=== PATIENT | male | born 1990 | race Caucasian/White ===

== ENCOUNTER 2017-10-15 20:06 | Emergency (ER) | payer SELFPAY ==
[2017-10-15] MEDS ORDERED: predniSONE 20 MG TAB ONE (20:44)
[2017-10-15 21:08] LABS: #Basophils 0.1 thou/uL (0.0-0.2); #Eosinphils 0.9 thou/uL (0.0-0.7); #Lymphocytes 2.5 thou/uL (1.20-3.40); #Monocytes 0.6 thou/uL (0.11-0.59); #Neutrophils 4.1 thou/uL (1.40-6.50); %Eosinophils 10.6 % (0.0-10.0); %Lymphocytes 30.8 % (21.0-51.0); %Monocytes 7.5 % (0.0-10.0); %Neutrophils 50.1 % (42.0-75.0); Hemoglobin 15.4 g/dL (14.0-18.0); Mean Corpuscular HGB CONC 33.9 g/dL (32.0-36.0); Mean Corpuscular Hemoglobin 29.8 pg (27.0-31.0); Mean Corpuscular Volume 87.8 fl (80.0-94.0); Mean Platelet Volume 6.3 fL (7.4-10.4); Platelet Count 338 thou/uL (130-400); RBC Distribution Width 11.5 % (11.5-14.5); Red Blood Cell (RBC) Count 5.17 mill/uL (4.70-6.10); White Blood Cell (WBC) Count 8.2 thou/uL (4.8-10.8)
[2017-10-15 21:29] LABS: ALT (SGPT) 15 U/L (8-55); AST (SGOT) 20 U/L (5-34); Acetaminophen Less than 6.0 mcg/mL (10.0-30.0); Albumin 4.2 g/dL (3.5-5.0); Alcohol Less than 10 mg/dL (Less than 10); Alkaline Phosphatase 89 U/L (40-150); Anion Gap 9 mmol/L (10-20); BUN (Urea Nitrogen) 22 mg/dL (8.9-20.6); Bilirubin, Total 0.5 mg/dL (0.2-1.2); Calc. Creatinine Clearance 0 mL/min (70-130); Carbon Dioxide 30 mmol/L (22-29); Chloride 104 mmol/L (98-107); Estimated GFR-MDRD 84; Globulin 3.1 g/dL (2.4-3.5); Glucose 95 mg/dL (70-105); Potassium 4.1 mmol/L (3.5-5.1); Protein, Total 7.3 g/dL (6.0-8.3); Salicylate Less than 8.0 mg/dL (15.0-30.0); Sodium 139 mmol/L (136-145)
[2017-10-15 21:30] LABS: Bilirubin Negative (Negative); Blood, Urine Negative (Negative); Clarity CLEAR (Clear); Glucose, Urine (Dipstick) Negative (Negative); Leukocyte Negative (Negative); Nitrite Negative (Negative); Protein, Urine (Dipstick) Trace mg/dL (Neg-Trace); Specific Gravity, Urine 1.028 (1.002-1.036); Urobilinogen 0.2 mg/dL (0.2-1.0); pH, Urine 7.5 (5.0-9.0)
[2017-10-15 21:40] LABS: Amphetamine Detected (NotDetected); Barbiturates Screen Not Detected (NotDetected); Benzodiazepine Screen Not Detected (NotDetected); Cocaine Metabolite Screen Not Detected (NotDetected); Medtox Control Line Valid? VALID (VALID); Medtox Reader # READER 1; Methadone Not Detected (NotDetected); Methamphetamine Not Detected (NotDetected); Opiate Screen Not Detected (NotDetected); Oxycodone Screen Not Detected (NotDetected); Phencyclidine (PCP) Not Detected (NotDetected); THC/Cannabinoid Screen Detected (NotDetected); Tricyclic Screen Not Detected (NotDetected)
== END 2017-10-16 00:10 | disposition home or self-care (01) ==
LOC: ERS 20:06
DX: R41.82 Altered mental status, unspecified (principal); J45.909 Unspecified asthma, uncomplicated; F41.9 Anxiety disorder, unspecified; Z79.899 Other long term (current) drug therapy
CPT/HCPCS: 36415; 80053; 80306; 80307; 81003; 84443; 85025; 93005; 94640; J7506; J7620

== ENCOUNTER 2018-06-21 06:41 | Emergency (ER) | payer OTHER, SELFPAY ==
[2018-06-21 07:12] LABS: #Eosinphils 0.6 thou/uL (0.0-0.7); #Lymphocytes 2.2 thou/uL (1.20-3.40); #Monocytes 0.7 thou/uL (0.11-0.59); %Basophils 0.4 % (0.0-1.0); %Eosinophils 6.9 % (0.0-10.0); %Lymphocytes 25.4 % (21.0-51.0); %Monocytes 8.6 % (0.0-10.0); %Neutrophils 58.6 % (42.0-75.0); Hemoglobin 15.1 g/dL (14.0-18.0); Mean Corpuscular HGB CONC 32.8 g/dL (32.0-36.0); Mean Corpuscular Hemoglobin 28.3 pg (27.0-31.0); Mean Corpuscular Volume 86.3 fL (78.0-98.0); Platelet Count 261 thou/uL (130-400); Red Blood Cell (RBC) Count 5.33 mill/uL (4.70-6.10); White Blood Cell (WBC) Count 8.5 thou/uL (4.8-10.8)
[2018-06-21 07:29] LABS: ALT (SGPT) 16 U/L (8-55); AST (SGOT) 22 U/L (5-34); Acetaminophen Less than 6.0 mcg/mL (10.0-30.0); Albumin 4.4 g/dL (3.5-5.0); Alcohol Less than 10 mg/dL (Less than 10); Alkaline Phosphatase 69 U/L (40-150); Anion Gap 15 mmol/L (10-20); BUN (Urea Nitrogen) 25 mg/dL (8.9-20.6); Bilirubin, Total 1.1 mg/dL (0.2-1.2); CK (CPK) 328 U/L (30-200); Calc. Creatinine Clearance 0 mL/min (70-130); Calcium 9.1 mg/dL (7.8-10.44); Carbon Dioxide 23 mmol/L (22-29); Chloride 104 mmol/L (98-107); Estimated GFR-MDRD 78; Globulin 3.1 g/dL (2.4-3.5); Glucose 106 mg/dL (70-105); Potassium 3.7 mmol/L (3.5-5.1); Protein, Total 7.5 g/dL (6.0-8.3); Salicylate Less than 8.0 mg/dL (15.0-30.0); Sodium 138 mmol/L (136-145)
--- NOTE | 2018-06-21 08:41 | CT ---
BRAIN CT WITHOUT IV CONTRAST: HISTORY: A 28-year-old male with a history of altered mental status, possible drug ingestion. FINDINGS: No focal mass or midline shift. No intra- or extraaxial hemorrhage. There are moderate-sized mucosa l changes involving the ethmoid sinuses and right maxillary sinus. The mastoids are clear. IMPRESSION: No significant acute intracranial process. No mass or bleed. Sinus mucosal disease. POS: [facility]
[2018-06-21 08:42] LABS: Bilirubin Negative (Negative); Blood, Urine Negative (Negative); Clarity CLEAR (Clear); Glucose, Urine (Dipstick) Negative (Negative); Leukocyte Small (Negative); Nitrite Negative (Negative); Protein, Urine (Dipstick) Negative (Neg-Trace); Specific Gravity, Urine 1.018 (1.002-1.036); Urobilinogen 0.2 mg/dL (0.2-1.0)
[2018-06-21 08:44] LABS: Bacteria/HPF None Seen HPF (None Seen); Hyaline Casts/LPF 0-3 HYALINE CAST LPF (0-3 Hyaline); RBC/HPF None Seen HPF (0-3); Squamous Epithelial 0-3 HPF (0-3)
[2018-06-21 08:55] LABS: Amphetamine Detected (NotDetected); Barbiturates Screen Not Detected (NotDetected); Benzodiazepine Screen Not Detected (NotDetected); Cocaine Metabolite Screen Not Detected (NotDetected); Medtox Control Line Valid? VALID (VALID); Medtox Reader # READER 1; Methadone Not Detected (NotDetected); Methamphetamine Not Detected (NotDetected); Opiate Screen Not Detected (NotDetected); Oxycodone Screen Not Detected (NotDetected); Phencyclidine (PCP) Not Detected (NotDetected); THC/Cannabinoid Screen Not Detected (NotDetected); Tricyclic Screen Not Detected (NotDetected)
--- NOTE | 2018-06-21 09:15 | CT ---
CT ABDOMEN AND PELVIS WITHOUT IV CONTRAST: Multiple axial tomograms obtained through the abdomen and pelvis without iv enhancement. INDICATION: Mental status change. Possible drug ingestion. FINDINGS: Lung bases clear. The liver, spleen, and pancreas unremarkable. Adrenal gland and kidneys unremarkable. Bowel loops a ppear unremarkable. No mass or adenopathy. The urinary bladder is distended. IMPRESSION: No acute abnormality identified. POS: [facility]
[2018-06-21] MEDS ORDERED: Naloxone HCl 0.4 mg/ml Vial ONE (11:03)
--- NOTE | 2018-06-21 12:51 | HP ---
PRIMARY CARE PHYSICIAN: Unknown. CHIEF COMPLAINT: Altered mental status. HISTORY OF PRESENT ILLNESS: The patient is currently obtunded and therefore I am unable to get any h istory. The history was obtained from discussion with the emergency room physician and nursing staff . The patient is a 28-year-old gentleman who was accused of assaulting girlfriend the police arrived and took him to the local detention. Apparently when they were coming to arrest him, they heard a lot of flushing in the bathroom. He was taken to the detention and apparently at that time he was coherent and once he arrived in the detention, he became altered what I am told that he was more lethargic, not combati ve and then brought to the emergency room for evaluation. Since being in the ER, he has been letharg ic and basically unresponsive. There is some history of prior contact with law enforcement and in th is history it is related to me that he has had a history of inserting substances rectally. For this reason, a CT scan of the abdomen was done which was negative. The ER physician performed a rectal ex am and revealed no foreign bodies. He was given Narcan without much response. He is being placed in observation or admitted for further evaluation. Otherwise, no other history is obtainable. REVIEW OF SYSTEM: The review of system also unobtainable due to the patient being obtunded. PAST MEDICAL HISTORY: There is an old discharge summary found in the electronic records from 2013 an d it demonstrates that he has a history of asthma in the past. PAST SURGICAL HISTORY: Unobtainable. ALLERGIES: Unknown. SOCIAL HISTORY: Unobtainable due to obtunded. FAMILY HISTORY: Unobtainable due to the patient being obtunded. MEDICATIONS: Unobtainable due to the patient being obtunded. PHYSICAL EXAMINATION: VITAL SIGNS: Blood pressure was 131/85, heart rate 78, respiratory rate of 20, temperature is 97.7. HEENT: His pupils are equal, round, and reactive. His pupils are slightly pinpoint. I am unable to assess his extraocular muscles. His sclerae are anicteric; however, they are a bit injected. Throa t: There is no erythema. Uvula is midline. NECK: No adenopathy, no bruits. LUNGS: Clear to auscultation. He does have occasional rhonchi, no wheezing, no rales. CARDIOVASCULAR: He had a normal S1 and S2. I did not appreciate an S3 or S4. No murmurs, no clicks , no rubs. ABDOMEN: Soft, it is positive for bowel sounds. There was no evidence of any organomegaly. Unable to tell whether or not there was any tenderness. EXTREMITIES: There is no calf tenderness. No swelling, no redness, no joint effusions. NEUROLOGICALLY: Again, he is obtunded, but he does move all extremities. SKIN/INTEGUMENT: There are no skin changes, no rashes. NEUROLOGICAL: His cranial nerves were grossly intact and he is moving all extremities. LABORATORY DATA: EKG there is sinus rhythm. The heart rate is 91. There are no ST wave changes and this is by my reading. LABORATORY WORK: White blood cell count 8.5, hemoglobin 15.1, hematocrit is 46, platelet count is 26 1. Sodium 138, potassium 3.7, chloride is 104, CO2 is 23, BUN of 25, creatinine 1.14, glucose is 106 . Urinalysis is negative. Urine drug screen was positive for amphetamines. ASSESSMENT AND PLAN: This is a 28-year-old gentleman who was brought to the emergency room with alte red mental status. CT scan of the head was negative as well as abdominal CT. 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 The plan originally was to place him i n the [facility] to monitor him; however, while I was down here in the emergency room, the patient actually woke up and is responsive and back to his baseline and therefore, he will be discharged from the ER into the custody of the correctional system.
== END 2018-06-21 13:03 ==
LOC: ERS 06:41
DX: R41.82 Altered mental status, unspecified (principal); T50.995A Adverse effect of other drugs, medicaments and biological substances, initial encounter; J45.909 Unspecified asthma, uncomplicated; F41.9 Anxiety disorder, unspecified
CPT/HCPCS: 36415; 70450; 74176; 80053; 80306; 80307; 81003; 81015; 82550; 84443; 85025; 93005; 94640; 94760; 96361; 96374; J2310; J7620

== ENCOUNTER 2018-07-22 10:19 | Emergency (ER) | payer SELFPAY ==
[2018-07-22] MEDS ORDERED: Dexamethasone 4 mg/ml Vial ONE (10:47)
[2018-07-22] MEDS ORDERED: EPINEPHrine 1 MG/ML AMP ONE (10:53)
[2018-07-22] MEDS ORDERED: diphenhydrAMINE 50 MG/ML VIAL IVP SCH (11:00)
== END 2018-07-22 12:39 | disposition home or self-care (01) ==
LOC: ERS 10:19
DX: L50.9 Urticaria, unspecified (principal); F41.9 Anxiety disorder, unspecified
CPT/HCPCS: 94760; 96361; 96372; 96374; J0171; J1100; J1200

== ENCOUNTER 2019-01-12 10:41 | Emergency (ER) | payer SELFPAY ==
--- NOTE | 2019-01-12 12:58 | RAD ---
RIGHT FINGER 3 VIEWS: HISTORY: Blister of right middle finger, pain. FINDINGS: No fracture, dislocation, or bony destruction is seen. No periosteal reaction is identified. No rad iopaque foreign body is seen. POS: [facility]
[2019-01-12] MEDS ORDERED: Adacel (T-DAP) 0.5 ML SYRINGE ONE (13:01)
== END 2019-01-12 13:17 | disposition home or self-care (01) ==
LOC: ERS 10:41
DX: L02.511 Cutaneous abscess of right hand (principal); F41.9 Anxiety disorder, unspecified; J45.909 Unspecified asthma, uncomplicated; Z79.899 Other long term (current) drug therapy
CPT/HCPCS: 26010; 90471; 90715

== ENCOUNTER 2019-01-26 20:08 | Emergency (ER) | payer SELFPAY | END 2019-01-26 20:23 | disposition home or self-care (01) | LOC: ERS 20:08 | DX: F16.10 Hallucinogen abuse, uncomplicated (principal); F41.9 Anxiety disorder, unspecified; J45.909 Unspecified asthma, uncomplicated; Z79.899 Other long term (current) drug therapy | CPT/HCPCS: 99283 ==

== ENCOUNTER 2019-01-26 23:00 | Emergency (ER) | payer SELFPAY | END 2019-01-26 23:14 | LOC: ERS 23:00 | DX: Z00.00 Encounter for general adult medical examination without abnormal findings (principal); F41.9 Anxiety disorder, unspecified; Z79.899 Other long term (current) drug therapy | CPT/HCPCS: 99283 ==